=== PATIENT | male | born 1985 | race African-American/Black ===

== ENCOUNTER 2016-03-07 03:02 | Emergency (ER) | payer MEDICAID ==
[~2016-03-07] VITALS: Ht 172.7 cm; Wt 97.0 kg
[~2016-03-07 03:02] MED LIST: AMOX875T PO; BENZ100 PO; PRED20 PO; VENTAER INH; ZITH250T PO
[2016-03-07 03:05] VITALS: BP 135/81; PULSE 83; RESP 16; TEMP 98.1; O2SAT 97
[2016-03-07] MEDS ORDERED: BENA25TA3 PO (03:28)
[2016-03-07] MEDS ORDERED: RANI150T PO (03:28)
--- NOTE | 2016-03-07 03:29 | PD ---
HPI Chief Complaint: Skin Problem Time Seen by Provider: 03:15 Travel History International Travel<30 days: No Contact w/Intl Traveler<30days: No Traveled to known affect area: No History of Present Illness HPI This is a 31-year-old male presents for evaluation of pruritus. Symptoms started 4 days ago. He notes itching primarily on the torso and upper extremities. He has not noticed any rash except when he scratches. He initially was using Benadryl for the itching but he quit using it 2 days ago. Denies any new medications, creams, lotions, detergents, travel, clothing. He has no other complaints. PFSH Past Medical History Asthma: Yes Diminished Hearing: No Respiratory: Yes (ASTHMA) Immunizations Current: Yes Tetanus Vaccination: > 5 Years Influenza Vaccination: No Social History Alcohol Use: Yes (OCC) Tobacco Use: Yes (1 PPD) Substance Use: No Allergies-Medications (Allergen,Severity, Reaction): Coded Allergies: Seafood (Verified Allergy, Severe, RASH, 03/07/16) Uncoded Allergies: NUTS (Allergy, Severe, RASH, 07/29/10) Reported Meds & Prescriptions Reported Meds & Active Scripts Active Ranitidine (Ranitidine HCl) 150 Mg Tab 150 Mg PO DAILY 5 Days Benadryl Allergy (Diphenhydramine HCl) 25 Mg Tab 50 Mg PO Q6H PRN Review of Systems Except as stated in HPI: all other systems reviewed are Neg Physical Exam Narrative GENERAL: Well-developed well-nourished male in no acute distress SKIN: Warm and dry. No rash HEAD: Atraumatic. Normocephalic. EYES: Pupils equal and round. No scleral icterus. No injection or drainage. ENT: No nasal bleeding or discharge. Mucous membranes pink and moist. NECK: Trachea midline. No JVD. CARDIOVASCULAR: Regular rate and rhythm. No murmur appreciated. RESPIRATORY: No accessory muscle use. Clear to auscultation. Breath sounds equal bilaterally. GASTROINTESTINAL: Abdomen soft, non-tender, nondistended. Hepatic and splenic margins not palpable. Data Data Last Documented VS Vital Signs Date Time Temp Pulse Resp B/P Pulse Ox O2 Delivery O2 Flow Rate FiO2 03/07/16 03:05 98.1 83 16 135/81 97 Orders Diphenhydramine Inj (Benadryl Inj) (03/07/16 03:30) Ranitidine (Zantac) (03/07/16 03:30) [facility] Medical Decision Making Medical Screen Exam Complete: Yes Emergency Medical Condition: Yes Medical Record Reviewed: Yes Differential Diagnosis Pruritus, scabies, buttocks, fleas, hives, contact dermatitis, viral exanthem, pityriasis, cirrhosis Narrative Course 31-year-old male presents for evaluation of pruritus. Physical examination unremarkable with no rash, no clear etiology for his itchiness. Plan is to treat him with antihistamines and have him follow up with primary care physician as needed. Diagnosis Primary Impression: Pruritus Additional Instructions: Use medication as prescribed. Please be advised that Benadryl may cause sedation so do not drive or drink alcohol when using this medication. Avoid excessive scratching. Follow-up with primary care physician as needed. Med/Other Pt SpecificInfo: Prescription(s) given Scripts Ranitidine 150 Mg [id number] Mg PO DAILY 5 Days Ref 0 Prov:Noemi Diaz MD 03/07/16 Diphenhydramine (Benadryl Allergy)25 Mg Tab50 Mg PO Q6H PRN (ITCHING) #20 TAB Ref 0 Prov:Noemi Diaz MD 03/07/16 Disposition: 01 DISCHARGE HOME Condition: Stable Cory Daly Mar 07, 2016 03:29
[2016-03-07] MEDS ORDERED: diphenhydrAMINE HCL 50 MG/ML VIAL IM ONE (03:30)
[2016-03-07] MEDS ORDERED: RANITIDINE HCL 150 MG TAB PO ONE (03:30)
[2016-03-07] MEDS ORDERED: FAMOTIDINE 20 MG TAB PO ONE (03:45)
== END 2016-03-07 03:52 | disposition home or self-care (01) ==
LOC: NEPB 03:02
DX: L29.9 Pruritus, unspecified (principal); J45.909 Unspecified asthma, uncomplicated; F17.210 Nicotine dependence, cigarettes, uncomplicated
CPT/HCPCS: 96372; 99283; J1200

== ENCOUNTER 2016-08-27 09:56 | Emergency (ER) | payer MEDICAID ==
[~2016-08-27] VITALS: Ht 175.3 cm; Wt 93.0 kg
[~2016-08-27 09:56] MED LIST changes: -AMOX875T PO; +BENA25TA3 PO; -BENZ100 PO; -PRED20 PO; +RANI150T PO; -VENTAER INH; -ZITH250T PO
[2016-08-27 10:07] VITALS: BP 132/65; PULSE 74; RESP 15; TEMP 98.6; O2SAT 99
[2016-08-27] MEDS ORDERED: SODIUM CHLOR 0.9% 1000 ML INJ 1,000 ML IV SCH (10:17)
[2016-08-27] MEDS ORDERED: SODIUM CHLOR 0.9% 1000 ML INJ 1,000 ML IV ONE (10:30)
[2016-08-27] MEDS ORDERED: SODIUM CHLORIDE 0.9% FLUSH 10 ML FLUSH IV FLUSH PRN (10:30)
[2016-08-27 10:52] LABS: BACTERIA, URINE RARE /hpf; BLOOD, URINE NEG (NEG); COMMENT (UR) CULT NOT INDICATED; CULTURE IF INDICATED CULT NOT INDICATED; GLUCOSE,URINE NEG (NEG); GRANULAR CAST, URINE 28 /lpf; KETONE, URINE 10 mg/dL (NEG); MUCUS URINE FEW /lpf (OCC); NITRITE,URINE NEG (NEG); PH, URINE 6.5 (5.0-8.5); URINE COLOR YELLOW (YELLW/STRAW)
[2016-08-27 11:03] LABS: POTASSIUM 1.7 MEQ/L (3.5-5.1)
[2016-08-27] MEDS ORDERED: POTASSIUM CHLORIDE 10 MEQ CONTROLLED RELEASE TAB PO ONE (11:15)
[2016-08-27 11:20] LABS: CALCIUM-PROTEIN CORRECTED 6.3 MG/DL (8.5-10.1)
[2016-08-27 11:27] VITALS: BP 135/72; PULSE 58; RESP 20; O2SAT 99
[2016-08-27] MEDS: POTASSIUM CHLOR 20 MEQ PREMIX 100 ML IV SCH ×2 (11:28→13:15)
[2016-08-27] MEDS ORDERED: MAGNESIUM SULFATE 1 GM PREMIX 100 ML IV ONE (12:30)
[2016-08-27 13:15] LABS: BICARBONATE 24.2 MEQ/L (21.0-32.0); POTASSIUM 3.5 MEQ/L (3.5-5.1)
--- NOTE | 2016-08-27 13:33 | PD ---
HPI Chief Complaint: Alcohol/Drug Intoxication Time Seen by Provider: 10:17 Travel History International Travel<30 days: No Contact w/Intl Traveler<30days: No Traveled to known affect area: No History of Present Illness HPI Patient is a 31-year-old male who presents to emergency room with complaints of dehydration. Patient reports that he was partying for the past few weeks and has been using ecstasy. Patient reports that he last used ecstasy around 4 AM this morning. He feels dehydrated and flushed and request IVF. Patient denies any fevers or chills, denies any pain. Denies n/v PFSH Past Medical History Asthma: Yes Diminished Hearing: No Respiratory: Yes (ASTHMA) Immunizations Current: Yes Tetanus Vaccination: > 5 Years Influenza Vaccination: No ?: Not Past Surgical History Surgical History: No Previous Surgery Social History Alcohol Use: Yes (OCC) Tobacco Use: No Substance Use: No Allergies-Medications (Allergen,Severity, Reaction): Coded Allergies: Seafood (Verified Allergy, Severe, RASH, 03/07/16) Uncoded Allergies: NUTS (Allergy, Severe, RASH, 07/29/10) Reported Meds & Prescriptions Reported Meds & Active Scripts Active No Active Prescriptions or Reported Medications Review of Systems General / Constitutional: No: Fever Eyes: No: Visual changes HENT: No: Headaches Cardiovascular: No: Chest Pain or Discomfort Respiratory: No: Shortness of Breath Gastrointestinal: Positive: Other (dehydration), No: Abdominal Pain Genitourinary: No: Dysuria Musculoskeletal: No: Pain Skin: No Rash Neurologic: No: Weakness Psychiatric: Positive: Substance Abuse, No: Depression Endocrine: No: Polydipsia Hematologic/Lymphatic: No: Easy Bruising Physical Exam Narrative GENERAL: NAD SKIN: Focused skin assessment warm/dry. HEAD: Atraumatic. Normocephalic. EYES: Pupils equal and round. No scleral icterus. No injection or drainage. ENT: No nasal bleeding or discharge. Mucous membranes pink and moist. NECK: Trachea midline. No JVD. CARDIOVASCULAR: Regular rate and rhythm. No murmur appreciated. RESPIRATORY: No accessory muscle use. Clear to auscultation. Breath sounds equal bilaterally. GASTROINTESTINAL: Abdomen soft, non-tender, nondistended. Hepatic and splenic margins not palpable. MUSCULOSKELETAL: No obvious deformities. No clubbing. No cyanosis. No edema. NEUROLOGICAL: Awake and alert. No obvious cranial nerve deficits. Motor grossly within normal limits. Normal speech. PSYCHIATRIC: Appropriate mood and affect; insight and judgment normal. Denies si /hi Data Data Last Documented VS Vital Signs Date Time Temp Pulse Resp B/P Pulse Ox O2 Delivery O2 Flow Rate FiO2 08/27/16 11:27 58 20 135/72 99 Room Air 08/27/16 10:07 98.6 Orders Basic Metabolic Panel (Bmp) (08/27/16 10:17) Urinalysis - C+S If Indicated (08/27/16 10:17) Iv Access Insert/Monitor (08/27/16 10:17) Sodium Chlor 0.9% 1000 Ml Inj (Ns 1000 M (08/27/16 10:17) Sodium Chloride 0.9% Flush (Ns Flush) (08/27/16 10:30) Sodium Chlor 0.9% 1000 Ml Inj (Ns 1000 M (08/27/16 10:30) Protein Corrected Calcium(Pcc) (08/27/16 10:22) Potassium Chloride (Kcl) (08/27/16 11:15) Magnesium (Mg) (08/27/16 11:11) Potassium Chlor 20 Meq Premix (Kcl 20 Me (08/27/16 11:15) Electrocardiogram (08/27/16 ) Basic Metabolic Panel (Bmp) (08/27/16 11:29) Magnesium Sulfate 1 Gm Premix (Magnesium (08/27/16 12:30) Consult Hospitalist (08/27/16 ) Labs Laboratory Tests Test 08/27/16 08/27/16 10:22 12:25 Urine Color YELLOW Urine Turbidity CLEAR Urine pH 6.5 Urine Specific [place] 1.017 Urine Protein TRACE mg/dL Urine Glucose (UA) NEG mg/dL Urine Ketones 10 mg/dL Urine Occult Blood NEG Urine Nitrite NEG Urine Bilirubin NEG Urine Urobilinogen LESS THAN 2.0 MG/DL Urine Leukocyte Esterase NEG Urine WBC 1 /hpf Urine Bacteria RARE /hpf Urine Granular Casts 28 /lpf Urine Mucus FEW /lpf Microscopic Urinalysis Comment CULT NOT INDICATED Sodium Level 148 MEQ/L 144 MEQ/L Potassium Level 1.7 MEQ/L 3.5 MEQ/L Chloride Level 119 MEQ/L 110 MEQ/L Carbon Dioxide Level 14.0 MEQ/L 24.2 MEQ/L Anion Gap 15 MEQ/L 10 MEQ/L Blood Urea Nitrogen 5 MG/DL 6 MG/DL Creatinine 0.68 MG/DL 1.05 MG/DL Estimat Glomerular Filtration 166 ML/MIN 101 ML/MIN Rate Random Glucose 65 MG/DL 68 MG/DL Calcium Level 5.3 MG/DL 8.1 MG/DL Protein Corrected Calcium 6.3 MG/DL Magnesium Level 1.3 MG/DL Total Protein 4.6 GM/DL MDM Medical Decision Making Medical Screen Exam Complete: Yes Emergency Medical Condition: Yes Interpretation(s) Vital Signs Date Time Temp Pulse Resp B/P Pulse Ox O2 Delivery O2 Flow Rate FiO2 08/27/16 11:27 58 20 135/72 99 Room Air 08/27/16 10:07 98.6 74 15 132/65 99 Laboratory Tests Test 08/27/16 08/27/16 10:22 12:25 Urine Color YELLOW (YELLW/STRAW) Urine Turbidity CLEAR (CLEAR) Urine pH 6.5 (5.0-8.5) Urine Specific [place] 1.017 (1.002-1.035) Urine Protein TRACE mg/dL (NEG-TRACE) Urine Glucose (UA) NEG mg/dL (NEG) Urine Ketones 10 mg/dL (NEG) Urine Occult Blood NEG (NEG) Urine Nitrite NEG (NEG) Urine Bilirubin NEG (NEG) Urine Urobilinogen LESS THAN 2.0 MG/DL (LESS THAN 2.0) Urine Leukocyte Esterase NEG (NEG) Urine WBC 1 /hpf (0-5) Urine Bacteria RARE /hpf (NONE) Urine Granular Casts 28 /lpf (NONE) Urine Mucus FEW /lpf (OCC) Microscopic Urinalysis Comment CULT NOT INDICATED Sodium Level 148 MEQ/L 144 MEQ/L (136-145) (136-145) Potassium Level 1.7 MEQ/L 3.5 MEQ/L (3.5-5.1) (3.5-5.1) Chloride Level 119 MEQ/L 110 MEQ/L (98-107) (98-107) Carbon Dioxide Level 14.0 MEQ/L 24.2 MEQ/L (21.0-32.0) (21.0-32.0) Anion Gap 15 MEQ/L (5-15) 10 MEQ/L (5-15) Blood Urea Nitrogen 5 MG/DL (7-18) 6 MG/DL (7-18) Creatinine 0.68 MG/DL 1.05 MG/DL (0.60-1.30) (0.60-1.30) Estimat Glomerular Filtration 166 ML/MIN 101 ML/MIN Rate (>89) (>89) Random Glucose 65 MG/DL 68 MG/DL (74-106) (74-106) Calcium Level 5.3 MG/DL 8.1 MG/DL (8.5-10.1) (8.5-10.1) Protein Corrected Calcium 6.3 MG/DL (8.5-10.1) Magnesium Level 1.3 MG/DL (1.5-2.5) Total Protein 4.6 GM/DL (6.4-8.2) Differential Diagnosis electrolyte abnormality, drug reaction Narrative Course Patient is a 31-year-old male who presents to emergency room with complaints of dehydration. Patient reports that he was partying for the past few weeks and has been using ecstasy. Patient reports that he last used ecstasy around 4 AM this morning. He feels dehydrated and flushed and request IVF. Patient denies any fevers or chills, denies any pain. Denies n/v Laboratory Tests Test 08/27/16 08/27/16 10:22 12:25 Urine Color YELLOW (YELLW/STRAW) Urine Turbidity CLEAR (CLEAR) Urine pH 6.5 (5.0-8.5) Urine Specific [place] 1.017 (1.002-1.035) Urine Protein TRACE mg/dL (NEG-TRACE) Urine Glucose (UA) NEG mg/dL (NEG) Urine Ketones 10 mg/dL (NEG) Urine Occult Blood NEG (NEG) Urine Nitrite NEG (NEG) Urine Bilirubin NEG (NEG) Urine Urobilinogen LESS THAN 2.0 MG/DL (LESS THAN 2.0) Urine Leukocyte Esterase NEG (NEG) Urine WBC 1 /hpf (0-5) Urine Bacteria RARE /hpf (NONE) Urine Granular Casts 28 /lpf (NONE) Urine Mucus FEW /lpf (OCC) Microscopic Urinalysis Comment CULT NOT INDICATED Sodium Level 148 MEQ/L 144 MEQ/L (136-145) (136-145) Potassium Level 1.7 MEQ/L 3.5 MEQ/L (3.5-5.1) (3.5-5.1) Chloride Level 119 MEQ/L 110 MEQ/L (98-107) (98-107) Carbon Dioxide Level 14.0 MEQ/L 24.2 MEQ/L (21.0-32.0) (21.0-32.0) Anion Gap 15 MEQ/L (5-15) 10 MEQ/L (5-15) Blood Urea Nitrogen 5 MG/DL (7-18) 6 MG/DL (7-18) Creatinine 0.68 MG/DL 1.05 MG/DL (0.60-1.30) (0.60-1.30) Estimat Glomerular Filtration 166 ML/MIN 101 ML/MIN Rate (>89) (>89) Random Glucose 65 MG/DL 68 MG/DL (74-106) (74-106) Calcium Level 5.3 MG/DL 8.1 MG/DL (8.5-10.1) (8.5-10.1) Protein Corrected Calcium 6.3 MG/DL (8.5-10.1) Magnesium Level 1.3 MG/DL (1.5-2.5) Total Protein 4.6 GM/DL (6.4-8.2) patient's initial potassium 1.7 repeat potassium 3.5 patient was initially going to be admitted to the hospital for hypokalemia and was seen by Dr. Carreno - repeat BMP shows a potassium of 3.5. consult was placed to hospitalist as patient was going to be admitted to the hospital for hypokalemia. repeat potassium 3.5. plan for patient to be discharged to home. he understands need to stop using drugs. patient will follow up with pcp and will return to ER as needed Diagnosis Primary Impression: Drug abuse Additional Impression: Drug reaction Patient Instructions: General Instructions Additional Instructions: Stop using drugs! Drink plenty of fluids Please follow up with your primary care doctor Return to ER as needed Scripts No Active Prescriptions or Reported Meds Disposition: 01 DISCHARGE HOME Condition: Stable Trang Gil DO Aug 27, 2016 13:32
[2016-08-27 13:37] VITALS: BP 126/79; PULSE 66; RESP 16; O2SAT 99
--- NOTE | 2016-08-27 13:39 | PD.CONS ---
HPI Service [facility] Consult Requested By Reason for Consult electrolyte abnormalities Primary Care Physician Non-Staff Diagnoses: History of Present Illness patient is a 31 y/o male with no significant past medical history who presented to ER with generalized weakness. he says that he drank a lot and used ecstasy last night. when he woke up this morning he was so weak that he decided to come to ER. as part of the blood tests he was found to have electrolyte abnormalities for which the medicine was consulted. he denies any chest pain, sob, abdominal pain, nausea, vomiting, diarrhea, sob. Review of Systems Constitutional: COMPLAINS OF: Fatigue, DENIES: Fever, Weight loss, Chills, Night Sweats Eyes: DENIES: Blurred vision, Diplopia, Vision loss, Double Vision Ears, nose, mouth, throat: DENIES: Tinnitus, Vertigo, Throat pain, Epistaxis Respiratory: DENIES: Apneas, Cough, Snoring, Wheezing, Hemoptysis, Sputum production, Shortness of breath Cardiovascular: DENIES: Chest pain, Palpitations, Syncope, Dyspnea on Exertion , PND, Lower Extremity Edema, Orthopnea, Claudication Gastrointestinal: DENIES: Abdominal pain, Black stools, Bloody stools, Constipation, Diarrhea, Nausea, Vomiting, Difficulty Swallowing, Anorexia Genitourinary: DENIES: Urinary frequency, Urgency, Hematuria, Dysuria Musculoskeletal: DENIES: Joint pain, Muscle aches, Stiffness, Joint Swelling Integumentary: DENIES: Rash Neurologic: DENIES: Abnormal gait, Headache, Localized weakness, Paresthesias, Seizures, Speech Problems, Tremor, Poor Balance Psychiatric: DENIES: Anxiety, Confusion, Mood changes, Depression, Hallucinations, Agitation, Suicidal Ideation, Homicidal Ideation, Delusions Past Family Social History Allergies: Coded Allergies: Seafood (Verified Allergy, Severe, RASH, 03/07/16) Uncoded Allergies: NUTS (Allergy, Severe, RASH, 07/29/10) Past Medical History not significant. Past Surgical History none reported. Reported Medications none. Active Ordered Medications Current Medications Sodium Chloride (NS 1000 ml Inj) 1,000 ml @ 1,000 mls/hr Q1H IV Last administered on 08/27/16t 11:04; Start 08/27/16 at 10:17; Stop 08/27/16 at 11:16 ; Status DC Sodium Chloride 2 ml 2 ml UNSCH PRN IV FLUSH FLUSH AFTER USING IV ACCESS; Start 08/27/16 at 10:30 Sodium Chloride (NS 1000 ml Inj) 1,000 ml @ 999 mls/hr BOLUS ONCE IV Last administered on 08/27/16 11:04; Start 08/27/16 at 10:30; Stop 08/27/16 at 11:30 ; Status DC Potassium Chloride 30 meq 30 meq ONCE ONCE PO Last administered on 08/27/16 11:28; Start 08/27/16 at 11:15; Stop 08/27/16 at 11:16; Status DC Potassium Chloride 100 ml @ 50 mls/hr Q2H IV Last administered on 08/27/16 11 :28; Start 08/27/16 at 11:15; Stop 08/27/16 at 15:14 Magnesium Sulfate/ Dextrose (Magnesium Sulfate 1 Gm Premix) 100 ml @ 100 mls/ hr ONCE ONCE IV Last administered on 08/27/16 12:32; Start 08/27/16 at 12:30 ; Stop 08/27/16 at 13:29; Status DC Family History not relevant to this presentation. Social History smokes cigarettes- drinks daily and uses illicit drugs. Physical Exam Vital Signs Vital Signs Date Time Temp Pulse Resp B/P Pulse Ox O2 Delivery O2 Flow Rate FiO2 08/27/16 11:27 58 20 135/72 99 Room Air 08/27/16 10:07 98.6 74 15 132/65 99 Physical Exam GENERAL: This is a well-nourished, well-developed patient, in no apparent distress. SKIN: No rashes, ecchymoses or lesions. Cool and dry. HEAD: Atraumatic. Normocephalic. No temporal or scalp tenderness. EYES: Pupils equal round and reactive. Extraocular motions intact. No scleral icterus. No injection or drainage. ENT: Nose without bleeding, purulent drainage or septal hematoma. Throat without erythema, tonsillar hypertrophy or exudate. Uvula midline. Airway patent. NECK: Trachea midline. No JVD or lymphadenopathy. Supple, nontender, no meningeal signs. CARDIOVASCULAR: Regular rate and rhythm without murmurs, gallops, or rubs. RESPIRATORY: Clear to auscultation. Breath sounds equal bilaterally. No wheezes , rales, or rhonchi. GASTROINTESTINAL: Abdomen soft, non-tender, nondistended. No hepato-splenomegaly , or palpable masses. No guarding. MUSCULOSKELETAL: Extremities without clubbing, cyanosis, or edema. No joint tenderness, effusion, or edema noted. No calf tenderness. Negative Homans sign bilaterally. NEUROLOGICAL: Awake and alert. Cranial nerves II through XII intact. Motor and sensory grossly within normal limits. Five out of 5 muscle strength in all muscle groups. Normal speech. Laboratory Laboratory Tests Test 08/27/16 08/27/16 10:22 12:25 Urine Color YELLOW Urine Turbidity CLEAR Urine pH 6.5 Urine Specific [place] 1.017 Urine Protein TRACE Urine Glucose (UA) NEG Urine Ketones 10 Urine Occult Blood NEG Urine Nitrite NEG Urine Bilirubin NEG Urine Urobilinogen LESS THAN 2.0 Urine Leukocyte Esterase NEG Urine WBC 1 Urine Bacteria RARE Urine Granular Casts 28 Urine Mucus FEW Microscopic Urinalysis Comment CULT NOT INDICATED Sodium Level 148 144 Potassium Level 1.7 3.5 Chloride Level 119 110 Carbon Dioxide Level 14.0 24.2 Anion Gap 15 10 Blood Urea Nitrogen 5 6 Creatinine 0.68 1.05 Estimat Glomerular Filtration 166 101 Rate Random Glucose 65 68 Calcium Level 5.3 8.1 Protein Corrected Calcium 6.3 Magnesium Level 1.3 Total Protein 4.6 Result Diagram: 08/27/16 1225 Assessment and Plan Assessment and Plan A/P - electrolyte abnormalities; suspected lab error BMP was repeated with no hypokalemia/ acidosis -polysubstance abuse; advised to quit. -patient can be discharged home with outpatient f/u with his PCP. thank you for the consult. Discussed Condition With ER physician and the patient. Ela Rosario MD Aug 27, 2016 13:38
--- NOTE | 2016-08-28 16:52 | EKG ---
Date Performed: 08/27/2016 Time Performed: 11:30:55 PTAGE: 31 years EKG: Sinus rhythm WITH SINUS ARRHYTHMIA POSSIBLE RIGHT VENTRICULAR CONDUCTION DELAY BORDERLINE ECG NO PREVIOUS TRACING DOCTOR: Ranjeet Valerio Interpretating Date/Time 08/28/2016 16:48:53
== END 2016-08-27 13:59 | disposition home or self-care (01) ==
LOC: NEPE 09:56
DX: F19.10 Other psychoactive substance abuse, uncomplicated (principal); E87.6 Hypokalemia; R53.1 Weakness; J45.909 Unspecified asthma, uncomplicated; F17.210 Nicotine dependence, cigarettes, uncomplicated; Z79.899 Other long term (current) drug therapy
CPT/HCPCS: 80048; 81001; 83735; 84155; 93005; 96365; 96366; 96368; 99284; J3475; J3480; J7030